=== PATIENT | female | born 1945 | race Caucasian/White ===

== ENCOUNTER 2020-08-26 08:14 | Outpatient (CLI) | payer MEDICARE, SELFPAY ==
[2020-08-26 08:33] LABS: Mean Corpuscular Hemoglobin 32.7 pg (27.0-31.0); Mean Corpuscular Volume 93.5 fL (78.0-102.0); Mean Platelet Volume 9.5 fl (9.2-11.8); Platelet Count Result 200 K/mm3 (150-420); Red Blood Count 4.28 M/mm3 (4.20-5.40); Red Cell Distribution Width 11.8 % (11.6-14.4); White Blood Count 5.1 K/mm3 (4.8-10.8)
[2020-08-26 09:49] LABS: Alanine Aminotransferase 20 U/L (14-59); Albumin Level 3.7 g/dL (3.4-5.0); Alkaline Phosphatase 86 U/L (46-116); Anion Gap 8 mmol/L (8-16); Aspartate Amino Transferase 15 U/L (15-37); Bilirubin,Total 0.8 mg/dL (0.00-1.00); Blood Urea Nitrogen 15 mg/dL (7-18); Calcium 9.5 mg/dL (8.5-10.1); Carbon Dioxide 28 mmol/L (21-32); Chloride 105 mmol/L (98-108); Cholesterol 216 mg/dL (0-200); Estimated Glomerular Filt Rate > 60; Glucose 90 mg/dL (70-99); HDL Direct 59 mg/dL (40-60); LDL Cholesterol Calculated 140 mg/dL (<130); Osmolality Calculated 292 mOsm/kg (285-295); Potassium 4.5 mmol/L (3.5-5.1); Sodium 141 mmol/L (136-145); Total Protein 6.3 g/dL (6.4-8.2); Triglycerides 84 mg/dL (0-150)
[2020-08-30 20:39] LABS: T4 Thyroxine 14.2 mcg/dL (5.1-11.9)
== END 2020-08-26 08:15 | disposition home or self-care (01) ==
PROVIDERS: PCP Family Medicine; Visit Provider Nurse Practitioner Family
DX: E03.9 Hypothyroidism, unspecified (principal); Z68.23 Body mass index [BMI] 23.0-23.9, adult; I10 Essential (primary) hypertension
CPT/HCPCS: 36415; 80053; 80061; 84436; 84443; 85027

== ENCOUNTER 2020-11-09 09:56 | Outpatient (CLI) | payer MEDICARE, SELFPAY ==
[2020-11-09 11:19] LABS: Alanine Aminotransferase 26 U/L (14-59); Albumin Level 3.7 g/dL (3.4-5.0); Alkaline Phosphatase 95 U/L (46-116); Anion Gap 8 mmol/L (8-16); Aspartate Amino Transferase 17 U/L (15-37); Bilirubin,Total 0.9 mg/dL (0.00-1.00); Blood Urea Nitrogen 13 mg/dL (7-18); Calcium 8.8 mg/dL (8.5-10.1); Carbon Dioxide 28 mmol/L (21-32); Chloride 105 mmol/L (98-108); Estimated Glomerular Filt Rate > 60; Glucose 86 mg/dL (70-99); Osmolality Calculated 291 mOsm/kg (285-295); Potassium 4.4 mmol/L (3.5-5.1); Sodium 141 mmol/L (136-145); Thyroid Stimulating Hormone 25.41 uIU/mL (0.36-3.74); Total Protein 6.5 g/dL (6.4-8.2)
[2020-11-09 13:53] LABS: Free T4 Free Thyroxine 0.58 ng/dL (0.76-1.46)
[2020-11-11 20:34] LABS: T4 Thyroxine 4.5 mcg/dL (5.1-11.9)
== END 2020-11-09 09:57 | disposition home or self-care (01) ==
LOC: CHSLAB 10:06
PROVIDERS: Nurse Practitioner Family; PCP Family Medicine
DX: E03.4 Atrophy of thyroid (acquired) (principal); E83.51 Hypocalcemia; I10 Essential (primary) hypertension
CPT/HCPCS: 36415; 80053; 84436; 84439; 84443

== ENCOUNTER 2020-12-28 07:30 | Outpatient (CLI) | payer MEDICARE, SELFPAY ==
[2020-12-28 08:39] LABS: Alanine Aminotransferase 24 U/L (14-59); Albumin Level 3.6 g/dL (3.4-5.0); Alkaline Phosphatase 98 U/L (46-116); Anion Gap 9 mmol/L (8-16); Aspartate Amino Transferase 15 U/L (15-37); Bilirubin,Total 0.5 mg/dL (0.00-1.00); Blood Urea Nitrogen 16 mg/dL (7-18); Calcium 8.6 mg/dL (8.5-10.1); Carbon Dioxide 30 mmol/L (21-32); Chloride 103 mmol/L (98-108); Cholesterol 195 mg/dL (0-200); Estimated Glomerular Filt Rate > 60; Free T4 Free Thyroxine 1.22 ng/dL (0.76-1.46); Glucose 99 mg/dL (70-99); HDL Direct 57 mg/dL (40-60); LDL Cholesterol Calculated 124 mg/dL (<130); Osmolality Calculated 295 mOsm/kg (285-295); Potassium 4.8 mmol/L (3.5-5.1); Sodium 142 mmol/L (136-145); Total Protein 6.3 g/dL (6.4-8.2); Triglycerides 71 mg/dL (0-150)
[2020-12-29 07:56] LABS: Free T3 2.47 pg/mL (2.18-3.98)
== END 2020-12-28 07:31 | disposition home or self-care (01) ==
PROVIDERS: PCP Family Medicine; Visit Provider Internal Medicine Cardiovascular Disease
DX: E03.4 Atrophy of thyroid (acquired) (principal); E04.0 Nontoxic diffuse goiter; E83.51 Hypocalcemia; E78.5 Hyperlipidemia, unspecified
CPT/HCPCS: 36415; 80053; 80061; 84439; 84443; 84481

== ENCOUNTER 2021-08-22 07:23 | Outpatient (CLI) | payer MEDICARE, SELFPAY ==
[2021-08-22 09:50] LABS: Alanine Aminotransferase 29 U/L (14-59); Albumin Level 3.8 g/dL (3.4-5.0); Alkaline Phosphatase 103 U/L (46-116); Anion Gap 10 mmol/L (8-16); Aspartate Amino Transferase 22 U/L (15-37); Bilirubin,Total 0.6 mg/dL (0.00-1.00); Blood Urea Nitrogen 17 mg/dL (7-18); Calcium 8.9 mg/dL (8.5-10.1); Carbon Dioxide 26 mmol/L (21-32); Chloride 104 mmol/L (98-108); Estimated Glomerular Filt Rate > 60; Free T3 2.52 pg/mL (2.18-3.98); Free T4 Free Thyroxine 0.89 ng/dL (0.76-1.46); Glucose 90 mg/dL (70-99); Osmolality Calculated 291 mOsm/kg (285-295); Potassium 4.2 mmol/L (3.5-5.1); Sodium 140 mmol/L (136-145); Thyroid Stimulating Hormone 3.63 uIU/mL (0.36-3.74); Total Protein 6.7 g/dL (6.4-8.2)
== END 2021-08-22 07:24 | disposition home or self-care (01) ==
LOC: CHSLAB 07:28
PROVIDERS: PCP Family Medicine
DX: E03.4 Atrophy of thyroid (acquired) (principal); E04.0 Nontoxic diffuse goiter; E83.51 Hypocalcemia
CPT/HCPCS: 36415; 80053; 84439; 84443; 84481

== ENCOUNTER 2023-04-26 08:03 | Outpatient (CLI) | payer MEDICARE, SELFPAY ==
[2023-04-26 08:34] LABS: Basophils Absolute Auto 0.04 K/mm3 (0.00-0.10); Basophils Percent Auto 0.8 % (0.0-1.0); Eosinophils Absolute Auto 0.09 K/mm3 (0.02-0.50); Eosinophils Percent Auto 1.7 % (1.0-6.0); Hematocrit 40.6 % (35.0-42.0); Hemoglobin 14.2 g/dL (11.7-13.8); Immature Granulocyte Absolute 0.02 K/mm3 (0.00-0.00); Immature Granulocyte Percent A 0.4 % (0.0-0.0); Lymphocytes Absolute Auto 1.16 K/mm3 (1.10-4.50); Lymphocytes Percent Auto 22.4 % (18.0-42.0); Mean Corpuscular Hemoglobin 35.1 pg (27.0-31.0); Mean Corpuscular Volume 100.5 fL (78.0-102.0); Mean Platelet Volume 9.6 fl (9.2-11.8); Monocytes Absolute Auto 0.37 K/mm3 (0.10-0.90); Monocytes Percent Auto 7.1 % (2.0-11.0); Neutrophils Absolute Auto 3.5 K/mm3 (1.7-7.2); Neutrophils Percent Auto 67.6 % (50.0-70.0); Platelet Count Result 209 K/mm3 (150-420); Red Blood Count 4.04 M/mm3 (4.20-5.40); Red Cell Distribution Width 12.8 % (11.6-14.4); White Blood Count 5.2 K/mm3 (4.8-10.8)
[2023-04-26 09:37] LABS: Alanine Aminotransferase 18 U/L (14-59); Albumin Level 3.5 g/dL (3.4-5.0); Alkaline Phosphatase 96 U/L (46-116); Anion Gap 8 mmol/L (8-16); Aspartate Amino Transferase < 10 U/L (15-37); Bilirubin Direct 0.2 mg/dL (0-0.2); Bilirubin,Total 0.7 mg/dL (0.00-1.00); Blood Urea Nitrogen 18 mg/dL (7-18); Calcium 9.1 mg/dL (8.5-10.1); Carbon Dioxide 30 mmol/L (21-32); Chloride 106 mmol/L (98-108); Cholesterol 217 mg/dL (0-200); Estimated Glomerular Filt Rate > 60; Free T4 Free Thyroxine 0.35 ng/dL (0.76-1.46); Glucose 85 mg/dL (70-99); HDL Direct 76 mg/dL (40-60); LDL Cholesterol Calculated 124 mg/dL (<130); Osmolality Calculated 298 mOsm/kg (285-295); Potassium 4.3 mmol/L (3.5-5.1); Sodium 144 mmol/L (136-145); Thyroid Stimulating Hormone 86.81 uIU/mL (0.36-3.74); Total Protein 6.2 g/dL (6.4-8.2); Triglycerides 87 mg/dL (0-150)
[2023-04-26 09:39] LABS: Vitamin B12 < 80 pg/mL (193-986)
[2023-05-02 18:23] LABS: Vitamin D 25 Hydroxy 32 ng/mL (30-100)
== END 2023-04-26 08:04 | disposition home or self-care (01) ==
LOC: CHSLAB 08:06
PROVIDERS: PCP Family Medicine; Visit Provider Nurse Practitioner Family
DX: E78.5 Hyperlipidemia, unspecified (principal); E55.9 Vitamin D deficiency, unspecified; E03.9 Hypothyroidism, unspecified; I10 Essential (primary) hypertension; Z13.220 Encounter for screening for lipoid disorders
CPT/HCPCS: 36415; 80048; 80061; 80076; 82306; 82607; 84439; 84443; 85025

== ENCOUNTER 2023-08-11 07:19 | Outpatient (CLI) | payer MEDICARE, SELFPAY ==
[2023-08-11 07:41] LABS: Hematocrit 38.4 % (35.0-42.0); Hemoglobin 13.2 g/dL (11.7-13.8); Mean Corpuscular HGB Conc 34.4 g/dL (32.0-36.0); Mean Corpuscular Hemoglobin 34.2 pg (27.0-31.0); Mean Corpuscular Volume 99.5 fL (78.0-102.0); Mean Platelet Volume 9.5 fl (9.2-11.8); Platelet Count Result 221 K/mm3 (150-420); Red Blood Count 3.86 M/mm3 (4.20-5.40); Red Cell Distribution Width 12.6 % (11.6-14.4)
[2023-08-11 08:13] LABS: Hemoglobin A1C 4.8 % (<5.7)
[2023-08-11 08:39] LABS: Alanine Aminotransferase 22 U/L (14-59); Albumin Level 3.7 g/dL (3.4-5.0); Alkaline Phosphatase 94 U/L (46-116); Anion Gap 9 mmol/L (8-16); Aspartate Amino Transferase 16 U/L (15-37); Bilirubin,Total 0.9 mg/dL (0.00-1.00); Blood Urea Nitrogen 15 mg/dL (7-18); Calcium 8.2 mg/dL (8.5-10.1); Carbon Dioxide 28 mmol/L (21-32); Chloride 104 mmol/L (98-108); Cholesterol 152 mg/dL (0-200); Estimated Glomerular Filt Rate > 60; Folic Acid 19.6 ng/mL (8.6->20); Free T4 Free Thyroxine 0.43 ng/dL (0.76-1.46); Glucose 89 mg/dL (70-99); HDL Direct 59 mg/dL (40-60); LDL Cholesterol Calculated 81 mg/dL (<130); Osmolality Calculated 291 mOsm/kg (285-295); Sodium 141 mmol/L (136-145); Total Protein 6.1 g/dL (6.4-8.2); Triglycerides 61 mg/dL (0-150); Vitamin B12 99 pg/mL (193-986)
[2023-08-13 16:43] LABS: Thyroid Stimulating Hormone 73.33 uIU/mL (0.36-3.74)
[2023-08-13 16:58] LABS: Vitamin D 25 Hydroxy 44 ng/mL (30-100)
== END 2023-08-11 07:20 | disposition home or self-care (01) ==
LOC: CHSLAB 07:20
PROVIDERS: PCP Family Medicine; Visit Provider Nurse Practitioner Adult Health
DX: Z13.1 Encounter for screening for diabetes mellitus (principal); Z13.21 Encounter for screening for nutritional disorder; E53.8 Deficiency of other specified B group vitamins; Z13.220 Encounter for screening for lipoid disorders; I10 Essential (primary) hypertension; E03.9 Hypothyroidism, unspecified; R19.7 Diarrhea, unspecified; E55.9 Vitamin D deficiency, unspecified; R79.89 Other specified abnormal findings of blood chemistry
CPT/HCPCS: 36415; 80053; 80061; 82306; 82607; 82746; 83036; 84439; 84443; 85027

== ENCOUNTER 2024-09-26 07:34 | Outpatient (CLI) | payer MEDICARE, SELFPAY ==
--- OUTSIDE RECORDS SUMMARY | 2024-09-26 07:43 | XMS_ITS | Referral Summary ---
Author Organization [facility] [address] Address [address] [place] [address] Care Team Providers Care Rn Hemodialysis Name Role Phone Kalie Rg NP Primary Care Provider [phone] Encounters Date Type Department Care Team Description 09/24/2024 12:45 PM CDT - 09/24/2024 2:56 PM CDT Emergency [facility] Emergency Department [address] [place] [address] Josué Ortega MD Chest pain, unspecified type (Primary Dx) Discharge Disposition: Left Against Medical Advice from Last 3 Months Allergies Active Allergy Reactions Criticality Noted Date Comments Clopidogrel Other (See comments) Low 08/29/2018 Hydralazine Shortness of breath High 09/09/2016 Strange feeling in chest, fire , and lightheaded Lisinopril Angioedema,Cough,H madeleine High 10/26/2016 Hives, angioedema, cough Losartan Potassium Hives Medium 09/04/2019 Metoclopramide Other (See comments) Low 05/22/2016 Monosodium Glutamate Nausea And Vomiting High 05/22/2016 Severe allergic reaction. Prednisone Unknown 05/22/2016 Hnvcrxv-Oxt-Yhc Reductase Inhibitors Unknown 09/09/2016 Awful side effects doesn't want to take any statins. Sulfa (Sulfonamide Antibiotics) Unknown 09/09/2016 Medications metoprolol tartrate (LOPRESSOR) 25 mg immediate release tablet Take 1 tablet (25 mg total) by mouth 2 (two) times a day 3 Active vitamins Y8-F6-B7-B5-B6 (VITAMIN B COMPLEX 100) 491-8-991-2-2 mg/mL injection Take as directed monthly 6 Active vitamin E 1,000 unit capsule Take 1 capsule (1,000 Units total) by mouth daily 3 Active ubidecarenone (coenzyme Q10) 100 mg tablet TAKE 1 TABLET DAILY (VERIFY DOSE) 6 Active flaxseed oiL 1,000 mg capsule Take 1 capsule (1,000 mg total) by mouth daily Active cholecalciferol (VITAMIN D-3) 5,000 unit capsule Take 2,000 Units by mouth daily Active ascorbic acid 500 mg tablet,chewable Take 2 tablet/chew tab (1,000 mg total) by mouth 2 (two) times a day Active cranberry fruit extract (CRANBERRY CONCENTRATE ORAL) Take 1 tablet daily. (VERIFY DOSE) 6 Active garlic 1,000 mg capsule Take 1,000 mg by mouth daily Active latanoprost (XALATAN) 0.005 % ophthalmic solution Administer 1 drop into both eyes nightly 2.5 mL 11 3 Active dorzolamide-ivana olol (Cosopt, PF,) 2-0.5 % ophthalmic solution Administer 1 drop into both eyes 2 (two) times a day 30 each 11 3 Active aspirin 81 mg chewable tablet Take 1 tablet (81 mg total) by mouth daily 20 tablet 5 09/25/19 26 Active nitroglycerin (NITROSTAT) 0.[address] 1 tablet (0.4 mg total) under the tongue every 5 (five) minutes as needed for chest pain 90 tablet 5 09/25/19 26 Active nitroglycerin (NITROSTAT) 0.4 mg SL tablet 1 09/25/19 25 Discontin ued(Alter vicente therapy) Active Problems Problem Noted Date Diagnosed Date Primary open angle glaucoma (POAG) of both eyes, severe stage 10/31/2022 Assessment & Plan (04/03/2023 11:55 AM CDT): She does not want surgery - fortunately 50% reduction from baseline. She has not started PF cosopt but getting it eventually may reduce redness. SLT without effect. OK to follow with optometry here or locally since she does not want surgery. She prefers to follow locally with Dr. Cox but likely only for observation. Assessment & Plan (03/06/2023 12:20 PM CDT): Multiple gtt intolerances and delay in care as she wants to avoid surgery. Discussed blindness OD and need for surgery. Will try PF cosopt as she defers intervention and cont xal. Brim with dizyness Gtts: PF cos 2/2 Xal 07/02 She wants IOP check and not surgery Assessment & Plan (01/23/2023 11:49 AM CDT): Does get confused with gtts - stopped cosopt IOP OU too high. May need B250 OD but want IOP on max gtts. Cannot do rhopressa Restart cos BID OU Brim BID OU Xal Qhs OU She wanst to have phaco OD - rec obs for now until IOP at max gtts determined. Likely phaco based procedure OD (gatt if at goal or B250 if not at goal) F/U 4-6 weeks IOP check and IOLM Assessment & Plan (11/02/2022 10:06 AM CDT): IOP much improved - vision improved OD as well still limited by glaucoma. Cont 5 classes and if rock inhibitor too expensive can try xal only Will get staging now 6 weeks HVF OU OCT/GCL OU Assessment & Plan (10/31/2022 4:10 PM CDT): Functionally monocular with APD OD and very elevated IOP OU. Moderate AC but angle open - sp LPI - this may be mixed mech/ Discussed surgery - she would like to see how medications work. This has likely been going on for years. No gtts so will start max gtts Cos 2/2 Brim 2/2 rocklatan Qhs Nuclear sclerosis of both eyes 10/31/2022 Social History Tobacco Use Types Packs/Day Years Used Date Smoking Tobacco: Never Smokeless Tobacco: Never Tobacco Cessation:Counseling Given: Not Answered Personal Safety Answer Date Recorded Have you ever been in or are you currently in a harmful physical or emotional relationship or is someone making you feel afraid or unsafe? 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 Gender Identity Not on file Sexual Orientation Not on file Last Filed Vital Signs Vital Sign Reading Time Taken Comments Blood Pressure 147/81 09/24/2024 1:30 PM CDT Pulse 49 09/24/2024 1:30 PM CDT Temperature 36.1 C (96.9 F) 09/24/2024 12:40 PM CDT Respiratory Rate 12 09/24/2024 1:30 PM CDT Oxygen Saturation 98% 09/24/2024 1:30 PM CDT Inhaled Oxygen Concentration - - Weight 56.7 kg (125 lb) 09/24/2024 12:40 PM CDT Height 160 cm (5' 3 ) 09/24/2024 12:40 PM CDT Body Mass Index 22.14 09/24/2024 12:40 PM CDT Plan of Treatment Not on file Procedures Procedure Name Priority Date/Time Associated Diagnosis Comments EGFR STAT 09/24/2024 1:12 PM CDT DIFFERENTIAL AUTO STAT 09/24/2024 1:1 2 PM CDT TROPONIN T HIGH-SENSITIVITY SERIES (BASELINE, 2HR, 4HR, 6HR) STAT 09/24/2024 1:12 PM CDT COMPREHENSIVE METABOLIC PANEL STAT 09/24/2024 1:12 PM CDT CBC WITH AUTO DIFFERENTIAL STAT 09/24/2024 1:12 PM CDT XR CHEST 1 VIEW ED 09/24/2024 1:01 PM CDT ECG 12-LEAD STAT 09/24/2024 12:42 PM CDT from Last 3 Months Results * Troponin T high-sensitivity series (baseline, 2hr, 4hr, 6hr) (09/24/2024 1:12 PM CDT) Trop T hs 9 <=14 ng/L Comment: Interpretive Data For further hscTnT resources including the diagnostic algorithm and an aid in interpretation, copy and paste this link: https://nrl.testcatalog.org/show/hsTrop Current Interpretive Data last revised 2020. Blood 09/24/2024 1:12 PM CDT 09/24/2024 1:23 PM CDT us Josué Ortega MD LAB BLOOD ORDERABLES Final R esult Performing Organization Address City/[facility]/ZIP Co de Phone Number [facility] [place] [address] * eGFR (09/24/2024 1:12 PM CDT) eGFR 80 >=60 mL/min/1. 73 m2 Comment: Interpretive Data Reference Interval Normal >/= 90 mL/min/1.73m2 Mildly decreased* 60 - 89 mL/min/1.73m2 Mildly to moderately decreased 45 - 59 mL/min/1.73m2 Moderately to severely decreased 30 - 44 mL/min/1.73m2 Severely decreased 15 - 29 mL/min/1.73m2 Kidney Failure < 15 mL/min/1.73m2 *Relative to young adult level Estimated glomerular filtration rate is determined by the 2020 CKD-EPI equation recommended by the National Kidney Foundation (A Unifying Approach to GFR Estimation: Recommendations of the NKF-ASK Task Force on Reassessing the Inclusion of Race in Diagnosing Kidney Disease, JASN 202). The CKD-EPI equation should not be used for patients with unstable renal function and has not been validated in children and those over 70. Current interpretive data was last reviewed 2021. Blood 09/24/2024 1:12 PM CDT 09/24/2024 1:23 PM CDT us Brina Molina MD LAB BLOOD ORDERABLES Desire l Result Performing Organization Address City/[facility]/ZIP Co de Phone Number [facility] [address] [facility] [place] [address] * Differential, auto (09/24/2024 1:12 PM CDT) Neutrophil abs 3.3 1.5 - 6.5 K/cumm Imm gran abs 0.0 0.0 - 0.1 K/cumm [facility] Lymphocyte abs 1.1 0.8 - 3.3 K/cumm [facility] Monocyte abs 0.3 0.2 - 0.8 K/cumm [facility] Eosinophil abs 0.1 0.0 - 0.5 K/cumm [facility]) Basophil abs 0.1 0.0 - 0.1 K/cumm [facility]) Neutrophil pct 68.4 % [facility] Comment: Interpretive Data Percent cell count reference ranges are not reported, since discordance with absolute values may lead to misinterpretation of CBC data. Current Interpretive Data was last revised on 2017. Imm gran pct 0.4 % [facility] Comment: Interpretive Data Percent cell count reference ranges are not reported, since discordance with absolute values may lead to misinterpretation of CBC data. Current Interpretive Data was last revised on 2017. Lymphocyte pct 22.3 % [facility] Comment: Interpretive Data Percent cell count reference ranges are not reported, since discordance with absolute values may lead to misinterpretation of CBC data. Current Interpretive Data was last revised on 2017. Monocyte pct 6.5 % [facility] Comment: Interpretive Data Percent cell count reference ranges are not reported, since discordance with absolute values may lead to misinterpretation of CBC data. Current Interpretive Data was last revised on 2017. Eosinophil pct 1.2 % [facility] Comment: Interpretive Data Percent cell count reference ranges are not reported, since discordance with absolute values may lead to misinterpretation of CBC data. Current Interpretive Data was last revised on 2017. Basophil pct 1.2 % [facility] Comment: Interpretive Data Percent cell count reference ranges are not reported, since discordance with absolute values may lead to misinterpretation of CBC data. Current Interpretive Data was last revised on 2017. Blood 09/24/2024 1:12 PM CDT 09/24/2024 1:23 PM CDT Brina Molina MD LAB BLOOD ORDERABLES Desire lakhani Result [facility] 1 [facility] Department [place] [address] * (ABNORMAL) CBC with auto differential (09/24/2024 1:12 PM CDT) Pathologist [facility] WBC 4.9 3.8 - 9.9 K/cumm Hgb 13.4 11.9 - 15.5 g/dL [facility] Hct 38.7 35.6 - 45.5 % [facility] Plt 236 150 - 400 K/cumm [facility] MPV 9.8 9.1 - 12.3 fL [facility] RBC 3.96 3.90 - 5.20 M/cumm [facility] MCV 97.7(H) 81.3 - 96.4 fL [facility] MCH 33.8(H) 27.1 - 33.3 pg [facility] MCHC 34.6 32.3 - 35.7 g/dL [facility] RDW CV 12.7 11.1 - 14.9 % [facility] RDW SD 46.0 35.7 - 48.1 fL [facility] NRBC abs 0.00 0.00 - 0.01 K/cumm [facility] Blood Venous blood specimen / Unknown 09/24/2024 1:12 PM CDT 09/24/2024 1:23 PM CDT us Josué Ortega MD LAB BLOOD ORDERABLES Final R esult [facility] 1 [facility] [email or web address] [address] * Comprehensive metabolic panel (09/24/2024 1:12 PM CDT) Sodium 141 135 - 145 mmol/L Potassium, pl 3.8 3.3 - 4.9 mmol/L [facility] Chloride 105 97 - 110 mmol/L [facility] CO2 23 22 - 32 mmol/L [facility] Anion gap 13 2 - 15 mmol/L [facility] BUN 17 6 - 25 mg/dL [facility] Creatinine 0.76 0.60 - 1.10 mg/dL [facility] Glucose 121 70 - 199 mg/dL [facility] Comment: Interpretive Data Fasting glucose >/= 126 mg/dl is diagnostic for diabetes. Fasting is defined as no caloric intake for at least 8 hours. Fasting glucose between 100 mg/dl to 125 mg/dl is diagnostic of prediabetes. In a patient with classic symptoms of hyperglycemia or hyperglycemic crisis, a random glucose >/= 200 mg/dl is diagnostic for diabetes. In the absence of unequivocal hyperglycemia, results should be confirmed by repeat testing. The classification and Diagnosis of Diabetes Diabetes Care 202; 46: S19-S40. Current interpretive data was last revised 2022. Calcium 8.9 8.5 - 10.3 mg/dL [facility] Bilirubin, total 0.5 0.1 - 1.2 mg/dL [facility] Protein, pl 6.5 6.5 - 8.5 g/dL [facility] Albumin 4.5 3.5 - 5.0 g/dL [facility] Alk phos 109 40 - 130 Units/L [facility] ALT 13 7 - 45 Units/L [facility] AST 19 10 - 45 Units/L [facility] Comment:Slightly Hemolyzed S pecimen Blood 09/24/2024 1:12 PM CDT 09/24/2024 1:23 PM CDT us Josué Ortega MD LAB BLOOD ORDERABLES Final R esult [facility] Department [place] [address] * XR Chest 1 Vw Portable (if patient condition/safety warrant portable) (09/24/2024 1:01 PM CDT) Anatomical Region Laterality Modality Body, Chest N/A Computed Radiogr aphy 09/24/2024 1:36 PM CDT Narrative 09/24/2024 1:37 PM CDT EXAM DESCRIPTION: XR CHEST 1 VIEW REASON FOR STUDY: Constellation of symptoms to include headaches, choking sensation, and neck pain radiating into the chest for 1 week. TECHNIQUE: Single frontal radiographic view acquired of the chest. COMPARISON: No prior imaging available at time of interpretation. FINDINGS: LUNGS: No focal consolidation. No pleural effusion. No pneumothorax. Right calcified pulmonary granulomas. HEART/MEDIASTINUM: Heart normal size and contour. Calcific atherosclerosis of the aortic arch. Right hilar and mediastinal calcified lymph nodes. LINES/TUBES: None. BONES: No acute osseous abnormality. IMPRESSION: No acute cardiopulmonary process with sequelae of prior granulomatous infection. THIS IS AN ELECTRONICALLY VERIFIED FINAL REPORT 09/24/2024 1:37 PM - Electronically signed by Uziel Phipps M.D. ROSIE: ROSIE Report ID: [id number] Reading Location: [place] [address] Procedure Note Uziel Phipps MD - 09/24/2024 EXAM DESCRIPTION: XR CHEST 1 VIEW REASON FOR STUDY: Constellation of symptoms to include headaches, choking sensation, and neck pain radiating into the chest for 1 week. TECHNIQUE: Single frontal radiographic view acquired of the chest. COMPARISON: No prior imaging available at time of interpretation. FINDINGS: LUNGS: No focal consolidation. No pleural effusion. No pneumothorax.Right calcified pulmonary granulomas. HEART/MEDIASTINUM: Heart normal size and contour. Calcificatherosclerosis of the aortic arch. Right hilar and mediastinal calcified lymph nodes. LINES/TUBES: None. BONES: No acute osseous abnormality. IMPRESSION: No acute cardiopulmonary process with sequelae of prior granulomatous infection. THIS IS AN ELECTRONICALLY VERIFIED FINAL REPORT 09/24/2024 1:37 PM - Electronically signed by Uziel Phipps M.D. ROSIE: ROSIE Report ID: [id number] Reading Location: [place] [address] Josué Ortega MD IMG XR PROCEDURES Final Resu lt * ECG 12 lead (09/24/2024 12:42 PM CDT) 09/24/2024 12:4 2 PM CDT Narrative [facility] - 09/24/2024 1:53 PM CDT Vent Rate: 56 bpm RR Interval: 1070 msec ND Interval: 181 msec QRS Duration: 85 msec QT Interval: 432 msec QTC Interval: 422 msec P-R-T Beason: 27 - -31 - -6 degrees IMPRESSION: SINUS BRADYCARDIA LEFT AXIS DEVIATION [QRS AXIS < -30] LOW QRS VOLTAGE IN PRECORDIAL LEADS [QRS DEFLECTION < 1.0 mV IN CHEST LEADS] MODERATE VOLTAGE CRITERIA FOR LVH, CONSIDER NORMAL VARIANT [MEETS CRITERIA IN ONE OF: R(aVL), S(V1), R(V5), R(V5/V6)+S(V1)] POSSIBLE ANTERIOR MYOCARDIAL INFARCTION , OF INDETERMINATE AGE [30 ms Q WAVE IN V3/V4, OR R < 0.2 mV IN V4] ABNORMAL ECG Electronically Signed By: Jhonatan De Guzman MD Josué Ortega MD ECG ORDERABLES Final Result [facility] from Last 3 Months Insurance MEDICARE MEDICARE AETNA SENIOR SUPPLEMENT AETNA MEDICARE [facility] AETNA SENIOR SUPPLEMENT AETNA MEDICARE GOLD Care Teams Rn Hemodialysis Relationship Specialty Start Date End Date Kalie Rg NP [address] [place], [place] [id number] PCP - General Nurse Practitioner 05/19/21
--- OUTSIDE RECORDS SUMMARY | 2024-09-26 07:43 | XMS_ITS | Clinical Summary ---
Author Organization [facility] Address [facility] [place] [address] Care Team Providers Care Industrial Gas Fitter Name Role Phone Carson Baires MD Primary Care Provider [phone] Martin Lanza MD Unavailable [phone] Allergies Active Allergy Reactions Criticality Noted Date Comments Metoclopramide Hyperactive 05/22/2016 Monosodium Glutamate Nausea and Vomiting 2015 Prednisone Unknown 05/22/2016 Steroids Unknown 05/22/2016 Medications Calcium Citrate-Vitamin D (CALCIUM + D OR) Take 1 tablet by mouth daily. 09/16/2012 Active Garlic 1000 MG capsule Take 1 capsule by mouth daily. 08/31/2014 Active levothyroxine (SYNTHROID) 75 MCG tablet Take 1 tablet by mouth daily. 09/13/2012 Active vitamin C 1000 MG tablet Take 2 tablets by mouth daily. 09/16/2012 Active vitamin E (TH VITAMIN E) 1000 UNIT Cap Take 2 tablets by mouth daily. 09/16/2012 Active B Complex Vitamins (VITAMIN B-COMPLEX 100) Injection Take as directed monthly 05/22/2016 Active clobetasol (CLOBETASOL PROPIONATE E) 0.05 % Cream Take as directed 05/22/2016 Active Cranberry 250 MG Tab Take 1 tablet daily. (VERIFY DOSE) 05/22/2016 Active Coenzyme Q10 100 MG Tab TAKE 1 TABLET DAILY (VERIFY DOSE) 05/22/2016 Active Flaxseed, Linseed, (GROUND FLAX SEEDS) Powder Take 1 tablet daily 05/22/2016 Active Multiple Minerals (CALCIUM-MAGNES IUM-ZINC) Tab Take 1 tablet daily 05/22/2016 Active Misc Natural Products (CURCUMAX PRO) Tab Take 1 tablet daily 05/22/2016 Active metoprolol tartrate 50 MG tablet Take 0.5 tablets (25 mg total) by mouth 2 (two) times daily. 90 tablet 1 05/30/2016 Active Active Problems Problem Noted Date Diagnosed Date Dyslipidemia Hypertension, essential Family History Medical History Relation Comments cad, hypertension, hypercholesterol Other Relation Status Comments Other Social History Tobacco Use Types Packs/Day Years Used Date Smoking Tobacco: Former Cigarettes Q uit: 1970 Smokeless Tobacco: Never Alcohol Use Standard Drinks/Week Comments Yes 0 (1 standard drink = 0.6 oz pur e alcohol) wine occ Comments Unknown Sex and Gender Information Value Date Recorded Sex Assigned at Not on file Legal Sex Female 10:26 PM CDT Gender Identity Not on file Sexual Orientation Not on file Occupation Industry Job Start Date Job End Date Not on file Not on file Not on file Not on file Last Filed Vital Signs Vital Sign Reading Time Taken Comments Blood Pressure 160/90 05/22/2016 1:06 PM [employer] Pulse 60 05/22/2016 1:06 PM [employer] Temperature - - Respiratory Rate - - Oxygen Saturation - - Inhaled Oxygen Concentration - - Weight 67.6 kg (149 lb) 05/22/2016 1:06 PM [employer] Height 157.5 cm (5' 2 ) 05/22/2016 1:06 PM [employer] Body Mass Index 27.25 05/22/2016 1:06 PM [employer] Plan of Treatment Health Maintenance Due Date Last Done Comments Hepatitis C 01/22/1964 DTaP, Tdap and Td Vaccines ( 1 - Tdap) 1965 Zoster Vaccines (1 of 2) 01/22/1996 Annual Medicare Wellness Visit 2011 Dexa Scan (General) 2011 Pneumococcal Vaccine: 65+ Ye ars (1 of 1 - PCV) 2011 RSV Immunization or 60+ Years (1 - 1-dose 75+ series) 2021 COVID-19 Vaccine ( - 2023-2 5 season) 2024 Influenza Adult (#1) 2024 Meningococcal B Vaccine Aged Out No l onger eligible based on patient's age to complete this topic Meningococcal Vaccine Aged Out No nessa fern eligible based on patient's age to complete this topic RSV Immunizations Under 20 Months Aged Out No longer eligible based on patient's age to complete this topic Insurance MEDICARE Care Teams Industrial Gas Fitter Relationship Specialty Start Date End Date Carson Baires MD [address] [address] PCP - General FAMILY PRACTICE 12/01/15 Martin Lanza MD [facility]. [address] [place] [address] Azul Product Development Director CARDIOVASCULAR DISEASE 12/01/15
--- OUTSIDE RECORDS SUMMARY | 2024-09-26 07:43 | XMS_ITS | Clinical Summary ---
Author Organization [facility] Address [address] [place] [address] Care Team Providers Care Quality Control Scientist Name Role Phone Carson Baires MD Primary Care Provider [phone] Source Comments [facility],non-owned Affiliates and Associated Physician Practices is amultiple site organization consisting of ambulatory clinics and hospital sitesin [place], [place], [place] and [place]. This disclosure is being madepursuant to the Care Everywhere program and may not contain all information available regarding this patient. Last updated 18.[facility] Social History Tobacco Use Types Packs/Day Years Used Date Smoking Tobacco: Never Assessed Sex and Gender Information Value Date Recorded Sex Assigned at Not on file Gender Identity Not on file Sexual Orientation Not on file Plan of Treatment Health Maintenance Due Date Last Done Comments BONE DENSITY TESTING 1945 MEDICARE AWV 12 MONTHS 1945 DTAP/TDAP/TD VACCINES (1 - Tdap) 1965 PNEUMOCOCCAL VACCINE 50+ (1 of 1 - PCV) 01/22/1996 ZOSTER VACCINE (1 of 2) 01/22/1996 Respiratory Syncytial Virus (RSV) Vaccine Pt: or over 60 yrs (1 - 1-dose 75+ series) 2021 COVID-19 VACCINE ( - 2023-2 5 season) 2024 INFLUENZA VACCINE (#1) 2024 DEPRESSION SCREENING 07/02/2024 HEPATITIS C SCREENING Completed 09/09/2016 HEPATITIS B VACCINE Aged Out No longe r eligible based on patient's age to complete this topic HIB VACCINE Aged Out No longer eligi ble based on patient's age to complete this topic HPV VACCINE Aged Out No longer eligi ble based on patient's age to complete this topic MENINGOCOCCAL (Group B) VACC INE SHARED DECISION-MAKING Aged Out No longer eligibl e based on patient's age to complete this topic MENINGOCOCCAL GROUPS A/C/Y/W VACCINE Aged Out No longer eligible b ased on patient's age to complete this topic Care Teams Quality Control Scientist Relationship Specialty Start Date End Date Carson Baires MD [address] [place] [address] PCP - General Family Medicine 02/14/17
--- OUTSIDE RECORDS SUMMARY | 2024-09-26 07:43 | XMS_ITS | Clinical Summary ---
Author Organization [facility] [address] Address [address] [place] [address] Care Team Providers Care Insecticide Maker Name Role Phone Kalie gR NP Primary Care Provider [phone] Allergies Active Allergy Reactions Criticality Noted Date Comments Clopidogrel Other (See comments) Low 08/29/2018 Hydralazine Shortness of breath High 09/09/2016 Strange feeling in chest, fire , and lightheaded Lisinopril Angioedema,Cough,H madeleine High 10/26/2016 Hives, angioedema, cough Losartan Potassium Hives Medium 09/04/2019 Metoclopramide Other (See comments) Low 05/22/2016 Monosodium Glutamate Nausea And Vomiting High 05/22/2016 Severe allergic reaction. Prednisone Unknown 05/22/2016 Hdtjzjx-Nyk-Ois Reductase Inhibitors Unknown 09/09/2016 Awful side effects doesn't want to take any statins. Sulfa (Sulfonamide Antibiotics) Unknown 09/09/2016 Medications metoprolol tartrate (LOPRESSOR) 25 mg immediate release tablet Take 1 tablet (25 mg total) by mouth 2 (two) times a day 3 Active vitamins [id number]-B6 (VITAMIN B COMPLEX 100) 767-4-354-2-2 mg/mL injection Take as directed monthly 6 [...] Qhs Nuclear sclerosis of both eyes 10/31/2022 Encounters Date Type Department Care Team Description 09/24/2024 12:45 PM CDT - 09/24/2024 2:56 PM CDT Emergency [facility] Emergency Department [address] [place] [address] Josué Ortega MD Chest pain, unspecified type (Primary Dx) Discharge Disposition: Left Against Medical Advice from Last 3 Months Surgical History Surgery Date Site/Laterality Comments EYE SURGERY Bilateral Unknown Glaucoma Laser Medical History Medical History Date Comments Cataract Family History Medical History Relation Name Comments Blindness Neg Hx Fuchs' dystrophy Neg Hx Glaucoma Neg Hx Macular degeneration Neg Hx Retinal detachment Neg Hx Social History Tobacco Use Types Packs/Day Years [...] on file Legal Sex Female 3:33 AM [employer] Gender Identity Not on file Sexual Orientation Not on file Obstetrics History Last Filed Vital Signs Vital Sign Reading [...] 09/24/2024 12:40 PM CDT Plan of Treatment Health Maintenance Due Date Last Done Comments Depression Screening 1945 Fall Risk Assessment 1945 Hepatitis C Screening 1945 Osteoporosis Screening-Bone Density Scan 1945 DTaP/Tdap/Td Vaccine (1 - Tdap) 1957 Hepatitis B Screening 01/22/1964 Pneumococcal vaccine 65+ (1 of 1 - PCV) 01/22/1996 Zoster Vaccine (1 of 2) 01/22/1996 Well Visit 65+ 2011 Influenza Vaccine (#1) 2024 Procedures Procedure Name Priority Date/Time Associated Diagnosis [...] BLOOD ORDERABLES Final R esult [facility] [place]) [address] [facility] [place] [address] * eGFR (09/24/2024 1:12 PM CDT) eGFR [...] Inclusion of Race in Diagnosing Kidney Disease, RICKN 2020). The CKD-EPI equation should not be used for patients with unstable renal function and has not been validated in children and those over 70. Current interpretive data was last reviewed 2021. Blood 09/24/2024 1:12 PM CDT 09/24/2024 1:23 PM CDT Brina Molina MD LAB BLOOD ORDERABLES Desire lakhani Result [facility] ([place]) [facility] [place] [address] * Differential, auto (09/24/2024 1:12 PM CDT) [...] Desire lakhani Result [facility] ([place]) [facility] [place] [address] * (ABNORMAL) CBC with auto differential (09/24/2024 1:12 PM CDT) WBC 4.9 3.8 - 9.9 K/cumm Hgb [...] 1:12 PM CDT 09/24/2024 1:23 PM CDT Josué Ortega MD LAB BLOOD ORDERABLES Final R esult [facility] ([place]) [facility] [place] [address] * Comprehensive metabolic panel (09/24/2024 1:12 PM [...] ([place]) Albumin 4.5 3.5 - 5.0 g/dL [facility] ([place]) Alk phos 109 40 - 130 Units/L [facility] ([place]) ALT 13 7 - 45 Units/L [facility] ([place]) AST 19 10 - 45 Units/L [facility] ([place]) Comment:Slightly Hemolyzed S pecimen Blood 09/24/2024 1:12 PM CDT 09/24/2024 1:23 PM CDT us Josué Ortega MD LAB BLOOD ORDERABLES Final R esult [facility] ([place]) [facility] [place] [address] * XR Chest 1 Vw Portable (if [...] Uziel Phipps M.D. ROSIE: ROSIE Report ID: [id number] Reading Location: [id number] Procedure Note Uziel Phipps MD - 09/24/2024 [...] Uziel Phipps M.D. ROSIE: ROSIE Report ID: [id number] Reading Location: [id number] Josué Ortega MD IMG XR PROCEDURES Final Resu lt * ECG 12 lead (09/24/2024 12:42 PM CDT) 09/24/2024 12:4 2 PM CDT Narrative [facility] - 09/24/2024 1:53 PM CDT Vent Rate: 56 bpm RR Interval: 1070 msec HI Interval: 181 msec QRS Duration: 85 msec QT Interval: 432 msec QTC Interval: 422 msec P-R-T [place]: 27 - -31 - -6 degrees IMPRESSION: [...] Josué Ortega MD ECG ORDERABLES Final Result [facility] from Last 3 Months Insurance MEDICARE MEDICARE AET SENIOR SUPPLEMENT AET MEDICARE GOLD AETNA SENIOR SUPPLEMENT AETNA MEDICARE GOLD Care Teams Insecticide Maker Relationship Specialty Start Date End Date Kalie Rg NP [address] [place] [address] PCP - General Nurse Practitioner 05/19/21
[2024-09-26 07:57] LABS: Basophils Absolute Auto 0.06 K/mm3 (0.00-0.10); Basophils Percent Auto 1.4 % (0.0-1.0); Eosinophils Absolute Auto 0.06 K/mm3 (0.02-0.50); Eosinophils Percent Auto 1.4 % (1.0-6.0); Hematocrit 40.4 % (35.0-42.0); Hemoglobin 13.7 g/dL (11.7-13.8); Immature Granulocyte Absolute 0.01 K/mm3 (0.00-0.00); Immature Granulocyte Percent A 0.2 % (0.0-0.0); Lymphocytes Absolute Auto 1.22 K/mm3 (1.10-4.50); Lymphocytes Percent Auto 27.8 % (18.0-42.0); Mean Corpuscular HGB Conc 33.9 g/dL (32-36); Mean Corpuscular Hemoglobin 33.5 pg (27.0-31.0); Mean Corpuscular Volume 98.8 fL (78.0-102.0); Mean Platelet Volume 9.6 fl (9.2-11.8); Monocytes Absolute Auto 0.36 K/mm3 (0.10-0.90); Monocytes Percent Auto 8.2 % (2.0-11.0); Neutrophils Absolute Auto 2.68 K/mm3 (1.70-7.20); Platelet Count Result 215 K/mm3 (150-420); Red Blood Count 4.09 M/mm3 (4.20-5.40); Red Cell Distribution Width 12.6 % (11.6-14.4); White Blood Count 4.4 K/mm3 (4.8-10.8)
[2024-09-26 11:51] LABS: Alanine Aminotransferase 16 U/L (14-59); Albumin Level 3.9 g/dL (3.4-5.0); Alkaline Phosphatase 121 U/L (46-116); Anion Gap 6 mmol/L (4-12); Aspartate Amino Transferase 12 U/L (15-37); Bilirubin,Total 0.9 mg/dL (0.00-1.00); Blood Urea Nitrogen 18 mg/dL (7-18); Carbon Dioxide 29 mmol/L (21-32); Chloride 105 mmol/L (98-108); Cholesterol 254 mg/dL (0-200); Estimated Glomerular Filt Rate 53; Folic Acid 16.7 ng/mL (8.6->20); Free T4 Free Thyroxine 0.47 ng/dL (0.76-1.46); Glucose 87 mg/dL (70-99); HDL Direct 71 mg/dL (40-60); Iron 120 ug/dL (50-170); LDL Cholesterol Calculated 165 mg/dL (<130); Osmolality Calculated 290 mOsm/kg (285-295); Sodium 140 mmol/L (136-145); Thyroid Stimulating Hormone 67.86 uIU/mL (0.36-3.74); Total Protein 6.6 g/dL (6.4-8.2); Triglycerides 91 mg/dL (0-150); Vitamin B12 106 pg/mL (193-986)
[2024-09-26 14:33] LABS: Percent Iron Saturation 46 % (12-57)
[2024-09-28 07:33] LABS: Vitamin D 25 Hydroxy 49 ng/mL (30-100)
== END 2024-09-26 07:35 | disposition home or self-care (01) ==
PROVIDERS: PCP Family Medicine; Visit Provider Nurse Practitioner Family
DX: E78.5 Hyperlipidemia, unspecified (principal); Z13.220 Encounter for screening for lipoid disorders; Z13.1 Encounter for screening for diabetes mellitus; E03.9 Hypothyroidism, unspecified; E55.9 Vitamin D deficiency, unspecified; R19.7 Diarrhea, unspecified; E53.8 Deficiency of other specified B group vitamins; R79.9 Abnormal finding of blood chemistry, unspecified
CPT/HCPCS: 36415; 80053; 80061; 82306; 82607; 82746; 83540; 83550; 84439; 84443; 85025